=== PATIENT | female | born 1995 | race Caucasian/White ===

== ENCOUNTER 2017-02-05 01:26 | Emergency (ER) | payer BC ==
[~2017-02-05] VITALS: Ht 167.6 cm; Wt 113.5 kg
[2017-02-05 01:33] VITALS: TEMP 36.7; Ht 167.6 cm; Wt 113.5 kg
[2017-02-05] MEDS ORDERED: [UNRECOGNIZED DRUG - OTHER] PO (01:58)
[2017-02-05] MEDS ORDERED: CHROMAX PO (01:58)
[2017-02-05] MEDS ORDERED: ONDANSETRON INJ 2 MG/ML 2 ML VIAL IV STA (02:08)
[2017-02-05] MEDS ORDERED: SODIUM CHLORIDE 0.9% 1000ML 1,000 ML IV STA (02:08)
--- NOTE | 2017-02-05 02:19 | EMERGENCY ROOM VISIT NOTE ---
History Report prepared by Scribe: Alma Mancini Under the Supervision of: Dr. Kevin Ortez D.O. First contact with patient: 01:39 Chief Complaint: DIZZY Stated Complaint: VOMITING,DIZZY, LIGHTHEADED, TIGHTNESS IN CHEST History of Present Illness The patient is a 21 year old female who presents to the Emergency Room with complaints of intermittent dizziness that started an hour after taking two 25 mg Placil pills. The patient took the Placil because she was having difficulty sleeping. She notes dizziness, lightheadedness, nausea and tightness in her chest. The patient notes that she had a surgical termination a month ago. Source of History: patient Quality: other (dizziness) Timing: intermittent Associated Symptoms: + nausea Note: Pt notes lightheadedness and tightness in her chest Review of Systems See HPI for pertinent positives and negatives. A total of ten systems were reviewed and were otherwise negative. Past Medical & Surgical Medical Problems: (1) surgical termination Family History no pertinent family history stated Social History Smoking Status: Never Smoker Occupation Status: student Current/Historical Medications Scheduled [chromax], 1 CAP PO DAILY [placil], 50 MG PO DAILY Allergies Coded Allergies: No Known Allergies (Unverified , 02/05/17) Physical Exam Vital Signs Date Time Temp Pulse Resp B/P (MAP) Pulse Ox O2 Delivery O2 Flow Rate FiO2 02/05/17 02:31 76 02/05/17 01:33 36.7 91 19 138/85 100 Room Air Physical Exam GENERAL: Awake, alert, well-appearing, in no distress HENT: Normocephalic, atraumatic. Oropharynx unremarkable. EYES: Normal conjunctiva. Sclera non-icteric. NECK: Supple. No nuchal rigidity. FROM. No JVD. RESPIRATORY: Clear to auscultation. CARDIAC: Regular rate, normal rhythm. Extremities warm and well perfused. Pulses equal. ABDOMEN: Soft, non-distended. No tenderness to palpation. No rebound or guarding. No masses. RECTAL: Deferred. MUSCULOSKELETAL: Chest examination reveals no tenderness. The back is symmetrical on inspection without obvious abnormality. There is no CVA tenderness to palpation. No joint edema. LOWER EXTREMITIES: Calves are equal size bilaterally and non-tender. No edema. No discoloration. NEURO: Normal sensorium. No sensory or motor deficits noted. SKIN: No rash or jaundice noted. Medical Decision & Procedures Laboratory Results 9/5/17 02:15 Red Blood Count 4.52, Mean Corpuscular Volume 85.8, Mean Corpuscular Hemoglobin 31.0, Mean Corpuscular Hemoglobin Concent 36.1, Mean Platelet Volume 10.4, Neutrophils (%) (Auto) 84.3, Lymphocytes (%) (Auto) 10.4, Monocytes (%) (Auto) 4.4, Eosinophils (%) (Auto) 0.4, Basophils (%) (Auto) 0.3, Neutrophils # (Auto) 9.48, Lymphocytes # (Auto) 1.17, Monocytes # (Auto) 0.50, Eosinophils # (Auto) 0.04, Basophils # (Auto) 0.03 02/05/17 02:15 Test 02/05/17 02:15 White Blood Count 11.24 K/uL (4.8-10.8) Red Blood Count 4.52 M/uL (4.2-5.4) Hemoglobin 14.0 g/dL (12.0-16.0) Hematocrit 38.8 % (37-47) Mean Corpuscular Volume 85.8 fL (80-100) Mean Corpuscular Hemoglobin 31.0 pg (25-34) Mean Corpuscular Hemoglobin Concent 36.1 g/dl (32-36) Platelet Count 214 K/uL (130-400) Mean Platelet Volume 10.4 fL (7.4-10.4) Neutrophils (%) (Auto) 84.3 % Lymphocytes (%) (Auto) 10.4 % Monocytes (%) (Auto) 4.4 % Eosinophils (%) (Auto) 0.4 % Basophils (%) (Auto) 0.3 % Neutrophils # (Auto) 9.48 K/uL (1.4-6.5) Lymphocytes # (Auto) 1.17 K/uL (1.2-3.4) Monocytes # (Auto) 0.50 K/uL (0.11-0.59) Eosinophils # (Auto) 0.04 K/uL (0-0.5) Basophils # (Auto) 0.03 K/uL (0-0.2) RDW Standard Deviation 38.4 fL (36.4-46.3) RDW Coefficient of Variation 12.3 % (11.5-14.5) Immature Granulocyte % (Auto) 0.2 % Immature Granulocyte # (Auto) 0.02 K/uL (0.00-0.02) Anion Gap 7.0 mmol/L (3-11) Est Creatinine Clear Calc Drug Dose 142.8 ml/min Estimated GFR () 123.2 Estimated GFR (Non- 106.3 BUN/Creatinine Ratio 15.2 (10-20) Calcium Level 8.9 mg/dl (8.5-10.1) Total Bilirubin 0.5 mg/dl (0.2-1) Direct Bilirubin 0.1 mg/dl (0-0.2) Aspartate Amino Transf (AST/SGOT) 11 U/L (15-37) Alanine Aminotransferase (ALT/SGPT) 20 U/L (12-78) Alkaline Phosphatase 67 U/L (45-117) Total Protein 7.4 gm/dl (6.4-8.2) Albumin 4.0 gm/dl (3.4-5.0) Lipase 87 U/L (73-393) Human Chorionic Gonadotropin, Qual NEG (NEG) Laboratory results reviewed by me Medications Administered Medications (Trade) Dose Ordered Sig/Eve Route Start Time Stop Time Status Last Admin Dose Admin Sodium Chloride 1,000 ml @ 999 mls/hr Q1H1M STAT IV 02/05/17 02:08 02/05/17 03:08 DC 02/05/17 02:19 999 MLS/HR Ondansetron HCl (Zofran Inj) 4 mg NOW STAT IV 02/05/17 02:08 02/05/17 02:09 DC 02/05/17 02:19 4 MG ED Course 0205: The patient was evaluated in room B10. A complete history and physical exam was performed. 0208: Zofran Inj 4 mg IV, Sodium Chloride 1000 ml @ 999 mls/hr IV. 0304: I updated the patient on her normal test results. On reevaluation, the patient is smiling, more comfortable appearing and her nausea has subsided. 0312: I reevaluated the patient. Discussed results and discharge instructions: She verbalized understanding and agreement. The patient is ready for discharge. Medical Decision Differential diagnosis include medication reaction, anxiety, dehydration, and electrolyte abnormality Patient on repeat examination at 3:10 AM is resting in no distress and smiling. This may have been a medication reaction to antihistamine. Patient denies any overdose or intentional ingestions. I discussed evaluation with the patient at bedside and she states she feels much improved and ready for discharge Medication Reconcilliation Current Medication List: was personally reviewed by me Blood Pressure Screening Patient's blood pressure: Elevated blood pressure Blood pressure disposition: Elevated BP felt to be situational Impression Primary Impression: Nausea & vomiting Additional Impression: Medication reaction Scribe Attestation The scribe's documentation has been prepared under my direction and personally reviewed by me in its entirety. I confirm that the note above accurately reflects all work, treatment, procedures, and medical decision making performed by me. Departure Information Dispostion Home / Self-Care Referrals [facility] (PCP) Forms HOME CARE DOCUMENTATION FORM, IMPORTANT VISIT INFORMATION Patient Instructions ED Nausea Vomiting, My [facility] Problem Qualifiers
[2017-02-05 02:29] LABS: BASO % 0.3 %; BASO ABS # 0.03 K/uL (0-0.2); COMPLETE YES; EOS % 0.4 %; HEMATOCRIT 38.8 % (37-47); IG% 0.2 %; LYMPH % 10.4 %; LYMPH ABS # 1.17 K/uL (1.2-3.4); MEAN CELL VOLUME 85.8 fL (80-100); MEAN CORPUSCULAR HGB CONC 36.1 g/dl (32-36); MEAN PLATELET VOLUME 10.4 fL (7.4-10.4); MONO % 4.4 %; NEUT % 84.3 %; PLATELET COUNT 214 K/uL (130-400); RED BLOOD COUNT 4.52 M/uL (4.2-5.4); WHITE BLOOD COUNT 11.24 K/uL (4.8-10.8)
[2017-02-05 02:46] LABS: BUN/CREATININE RATIO 15.2 (10-20); CALCIUM 8.9 mg/dl (8.5-10.1); CREATININE 0.79 mg/dl (0.60-1.20); POTASSIUM 4.3 mmol/L (3.5-5.1)
[2017-02-05 03:01] LABS: PREG INTERNAL NEGATIVE QC NEG CLEAR BACKGROUND; PREG INTERNAL POSITIVE QC POS CONTROL LINE
[2017-02-05 03:22] VITALS: BP 127/77; PULSE 75; O2SAT 100
== END 2017-02-05 03:24 | disposition home or self-care (01) ==
LOC: C.EDB 01:28
DX: T45.0X5A Adverse effect of antiallergic and antiemetic drugs, initial encounter (principal); X58.XXXA Exposure to other specified factors, initial encounter; R11.2 Nausea with vomiting, unspecified